=== PATIENT | female | born 1950 | race Caucasian/White ===

== ENCOUNTER 2018-01-14 09:30 | Outpatient (RCR) | payer BC, MEDICARE, SELFPAY ==
[2018-01-07 10:33] VITALS: BP 138/78; PULSE 86; RESP 16; TEMP 36.6; BMI 34.0
--- NOTE | 2018-01-07 12:05 | HP.PCM_ITS ---
(1) Decubitus ulcer of left heel, stage 3 Status: Acute Current Visit: Yes Code(s): L89.623 - Pressure ulcer of left heel, stage 3 (2) Blister of left heel with infection Status: Acute Current Visit: Yes Code(s): S90.822A - Blister (nonthermal), left foot, initial encounter; L08.9 - Local infection of the skin and subcutaneous tissue, unspecified (3) Peripheral neuropathy Status: Acute Current Visit: Yes Qualifiers: Peripheral neuropathy type: mononeuropathy, other Qualified Code(s): G58.8 - Other specified mononeuropathies Code(s): G62.9 - Polyneuropathy, unspecified (4) Edema of left lower extremity Status: Acute Current Visit: Yes Code(s): R60.0 - Localized edema History of Present Illness Date of Service: 01/07/18 Chief Complaint: Follow-up on the left heel ulcer from November 13, 2017 History of Wound: 67-year-old white female that fractured her left femur. In the hospital recovering from rods and screws and non-immobilization developed a heel blister. Patient then was sent to assisted living for rehab and was noted to have a open left heel from November 17. Patient is wearing a foot and leg brace for mobility receiving physical therapy 3 times a week and walking on the left leg. Patient has been treating the ulcer with skin repair given to her by the senior living. The ulcer is open there is undermining of a flap ulcer on the inferior side of the heel. The ulcer itself looks relatively clean the scab has been removed and was half off anyways when she arrived. Patient has neuropathy from the surgery and is hoping that the feeling will come back but has no real feeling in her lower lateral left leg and heel. There is no odor and no redness though there is some cellulitis and swelling of the dorsal left foot. Cultures debridement lab work will all be obtained today and we will start her on Promogran to promote tissue healing and promote offloading to patient. Past Medical History Past Medical History: hypertension, fractured left femur high cholesterol Allergies/Adverse Reactions: Allergies No Known Drug Allergies Allergy (Verified 01/07/18 10:13) Unknown Home Medications: Ambulatory Orders Medication Instructions Recorded Aspirin 325 mg PO BID 01/07/18 Ergocalciferol [Vitamin D] 50,000 unit PO Q7D 01/07/18 Gabapentin [Neurontin] 200 mg PO BIDCM 01/07/18 Lisinopril [Zestril] 10 mg PO DAILY 01/07/18 [place]-3 Fatty Acids/Fish Oil [Fish 1 each PO DAILY 01/07/18 Oil 1,000 mg Capsule] Pravastatin [Pravachol] 20 mg PO QHS 01/07/18 Vitamin B Complex/Folic Acid 0.4 mg PO DAILY 01/07/18 [Super B Maxi Complex Caplet] Lives: Spouse/ Significant Other Smoking Status: Never smoker Tobacco Use: Non-smoker Alcohol: None Drugs: None Review of Systems Constitutional: Denies: Chills, Fever Eyes: Denies: Blurred vision, Drainage, Pain HEENT: Denies: Difficulty Hearing, Difficulty Swallowing, Sore Throat, Visual Changes Cardiovascular: Denies: Chest Pain, Palpitations, Syncope Respiratory: Denies: Cough, Shortness of Breath Gastrointestinal: Denies: Abdominal Pain, Nausea, Vomiting Genitourinary: Denies: Dysuria, Frequency Musculoskeletal: Denies: Joint Pain, Muscle pain Skin: Reports: -. Denies: Jaundice, Rash Neurological: Denies: Balance problems, Change in Speech, Difficulty swallowing , Focal weakness Psychiatric: Denies: Anxiety, Depression Endocrine: Denies: Change in Body Habitus Hematologic/ Lymphatic: Denies: Adenopathy - Physical Exam Vital Signs Temp Pulse Resp BP 97.8 F 86 16 138/78 H 01/07/18 10:33 01/07/18 10:33 01/07/18 10:33 01/07/18 10:33 General: Oriented x3, Cooperative, Well developed HEENT: Atraumatic, PERRLA Oral: Moist Mucosa Neck: Supple, No JVD Lungs: Clear to auscultation, Normal air movement Cardiovascular: Regular rate, Regular Rhythm Abdomen: Bowel Sounds Present, Soft, Non Tender, No Hepato-splenomegaly Extremities: No clubbing, No edema, - - Heel open ulcer decubitus stage III Wound Measurements and Assessment WC - Nurse 1 - General Ulcer Measurement Start: 01/07/18 10:10 Freq: Status: Active Protocol: Activity Type Activity Date Activity User E-Sign Co-Sign Detail Recorded Client Recorded Date Recorded By Document 01/07/18 10:33 [facility] [id number] 01/07/18 11:00 BMF 01/07/18 10:33 Wound Center Nurse 1 [Ulcer Assessment] #1- LT HEEL -Combined with other wound No -Current Size (cm) - Length 3.2 -Current Size (cm) - Width 3.4 -Current Size (cm) - Depth 0.1 -Total Square Cm 10.88 -Date of Last Picture (Recall this 01/07/18 field) -Photo Taken Yes -Epithelialization None Present -Tunneling No -Undermining/Tunneling No -Circular Undermining No -Exudate Amt Small (1-33%) -Exudate Type Sanguineous -Wound Margin Distinct, Outline Attached -Granulation Amt Large (67-100%) -Granulation Quality [place] -Slough/Fibrin Yes -Necrosis Amt Small (1-33%) -Necrotic Tissue Type Eschar -Structure Exposed N/A -Texture (Joycelyn-wound Skin Appearance) Scarring -Moisture (Joycelyn-wound Skin Appearance Maceration ) -Color (Joycelyn-wound Skin Appearance) Ecchymosis -Temperature (Joycelyn-wound Skin No Abnormality Appearance) (Pt Warm) -Tenderness on Palpation (Joycelyn-wound No Skin Appearance) -Ulcer Cleansing Rinsed/ Irrigated with Saline -Foul Odor after Cleansing No -Anesthetic Used 4% Lidocaine Solution 5% Lidocaine Gel [Edema Assessment] -Lower Limb Edema Present Yes -Right Calf (cm) 43 -Right Ankle (cm) 21 -Left Calf (cm) 45.1 -Left Ankle (cm) 23.5 WC - Nurse 2 - General Ulcer CM Notes Start: 01/07/18 10:10 Freq: Status: Active Protocol: Activity Type Activity Date Activity User E-Sign Co-Sign Detail Recorded Client Recorded Date Recorded By Document 01/07/18 11:16 MW [id number] 01/07/18 11:28 MW 01/07/18 11:16 Wound Center Nurse 2 [Procedure/Treatment] #1- LT HEEL -Time 11:16 -Correct Patient Yes -Correct Side, Site, Position Yes -Correct Procedure Yes -Procedure Performed Yes -Type of Procedure Debridement -Clinical Debridement Subcutaneous -Post Debridement Size (cm) - Length 3.0 -Post Debridement Size (cm) - Width 4.0 -Post Debridement Size (cm) - Depth 0.1 -Total Square Cm 12.00 -Wound/Ulcer Outcome Not Healed -Ulcer Cleansing Rinsed/ Irrigated with Saline -Foul Odor after Cleansing No -Bioengineered Tissue No -Bleeding Controlled with Pressure -Other undermining 3 to 6, 1.0 cm -Treatment Response Procedure Tolerated Well [See Physician Procedure note for Specifics] Pain Scale: 0-10 Numeric [Pain] -Is Patient Pain Free? Yes Musculoskeletal: No Tenderness to Palpation of Joints or Extremities Lymphatic: No Cervical, Supraclavicular, or Inguinal Adenopathy Neurological: Cranial nerves II-XII grossly intact, Neuro grossly intact Psych/Mental Status: Normal Affect, Appropriate Debridement Note Post-Debridement Measurements/Treatment WC - Nurse 2 - General Ulcer CM Notes Start: 01/07/18 10:10 Freq: Status: Active Protocol: Activity Type Activity Date Activity User E-Sign Co-Sign Detail Recorded Client Recorded Date Recorded By Document 01/07/18 11:16 MW [id number] 01/07/18 11:28 MW 01/07/18 11:16 Wound Center Nurse 2 #1- LT HEEL -Time 11:16 -Correct Patient Yes -Correct Side, Site, Position Yes -Correct Procedure Yes -Procedure Performed Yes -Type of Procedure Debridement -Clinical Debridement Subcutaneous -Post Debridement Size (cm) - Length 3.0 -Post Debridement Size (cm) - Width 4.0 -Post Debridement Size (cm) - Depth 0.1 -Total Square Cm 12.00 -Wound/Ulcer Outcome Not Healed -Ulcer Cleansing Rinsed/ Irrigated with Saline -Foul Odor after Cleansing No -Bioengineered Tissue No -Bleeding Controlled with Pressure -Other undermining 3 to 6, 1.0 cm -Treatment Response Procedure Tolerated Well Pain Scale: 0-10 Numeric Is Patient Pain Free? Yes Wound debrided: Decubitus ulcer left heel Laterality: Left Type of Debridement: Excisional debridement Anesthesia Used: 5% Lidocaine Gel Depth: Down to and including healthy tissue, in the subcutaneous layer, to muscle Percentage of wound debrided: 100 Instrument Used: 7mm curette Tissue Removed: Fibrin and devitalized tissue Severity: Fat Layer Exposed Amount of bleeding with debridement: Moderate Bleeding Controlled with: Compression and gauze Patient tolerated procedure well Assessment/Plan Work prealbumin CBC with differential wound cultures aerobic and anaerobic Active Problems Decubitus ulcer of left heel, stage 3 (Acute) Blister of left heel with infection (Acute) Peripheral neuropathy (Acute) Edema of left lower extremity (Acute) Assessment: Decubitus ulcer left heel stage III. Hypertension. Infected ulcer. Edema left lower leg Plan: Left leg with Hibiclens. Promogran to open ulcer and packed underneath undermining cover with gauze tape ABD. Double layer Tubigrip. Follow-up one week
[2018-01-07 13:56] LABS: Absolute Lymphocyte Count 1.78 X10^3/ul (0.83-4.51); Absolute Neutrophil Count 6.4 X10^3/uL (2.0-7.7); Basophil# 0.03 X10^3/uL; Basophil% 0.3 % (0-1); Eosinophil# 0.37 X10^3/uL; Eosinophils% 4.1 % (0-5); Hematocrit 40.5 % (37-47); Hemoglobin 12.5 g/dl (12.0-15.0); Lymphocyte # 1.78 X10^3/ul (4.0); Lymphocyte % 19.7 % (19-41); Mean Corp Hgb Conc 30.9 g/gl (32-36); Mean Corpuscular Hgb 28.9 pg (27.0-32.0); Mean Corpuscular Volume 93.8 fL (81-99); Mean Platelet Vol. 9.5 fl (6.2-12.0); Monocyte# 0.44 X10^3/uL; Monocyte% 4.9 % (0-10); Neutrophil # 6.39 X10^3/uL (2.7-7.7); Neutrophil % 70.8 % (47-70); Platelet Count 330 K/mm3 (150-450); RBC Distribution Width SD 47.9 fl (35.1-43.9); Red Blood Count 4.32 M/mm3 (4.2-5.4)
[2018-01-07 13:57] LABS: POSITIVE COUNT NO; POSITIVE DIFFERENTIAL NO; POSITIVE MORPHOLOGY NO
[2018-01-07 14:01] LABS: Erythrocyte Sedimentation Rate 25 mm/hr (0-30)
[2018-01-07 14:10] LABS: Prealbumin 30.2 mg/dL (20.0-40.0)
[2018-01-14 09:41] VITALS: BP 136/75; PULSE 90; RESP 16; TEMP 36.6; BMI 34.0
--- NOTE | 2018-01-14 11:15 | PCM.WC.PN ---
(1) Decubitus ulcer of left heel, stage 3 Status: Acute Current Visit: Yes Code(s): L89.623 - Pressure ulcer of left heel, stage 3 (2) Blister of left heel with infection Status: Acute Current Visit: Yes Code(s): S90.822A - Blister (nonthermal), left foot, initial encounter; L08.9 - Local infection of the skin and subcutaneous tissue, unspecified (3) Peripheral neuropathy Status: Acute Current Visit: Yes Qualifiers: Peripheral neuropathy type: mononeuropathy, other Qualified Code(s): G58.8 - Other specified mononeuropathies Code(s): G62.9 - Polyneuropathy, unspecified (4) Edema of left lower extremity Status: Acute Current Visit: Yes Code(s): R60.0 - Localized edema Type of Wound Date of Service: 01/14/18 Chief Complaint: Follow-up on the left heel ulcer from November 13, 2017 History of Wound: 67-year-old white female that fractured her left femur. In the hospital recovering from rods and screws and non-immobilization developed a heel blister. Patient then was sent to assisted living for rehab and was noted to have a open left heel from November 17. Patient is wearing a foot and leg brace for mobility receiving physical therapy 3 times a week and walking on the left leg. Patient has been treating the ulcer with skin repair given to her by the long term. The ulcer is open there is undermining of a flap ulcer on the inferior side of the heel. The ulcer itself looks relatively clean the scab has been removed and was half off anyways when she arrived. Patient has neuropathy from the surgery and is hoping that the feeling will come back but has no real feeling in her lower lateral left leg and heel. There is no odor and no redness though there is some cellulitis and swelling of the dorsal left foot. Cultures debridement lab work will all be obtained today and we will start her on Promogran to promote tissue healing and promote offloading to patient. Progress of Wound: Today the wound is smaller and is adhering to the heel now there is no undermining. Cultures were positive patient has been taking medication for her staph infection. Report came back negative for anemia negative for malnutrition. We will apply for epi fix to finish off the wound. States she has cut back on therapy to 2 times a week so she can offload better - Physical Exam Vital Signs Temp Pulse Resp BP 97.8 F 90 16 136/75 H 01/14/18 09:41 01/14/18 09:41 01/14/18 09:41 01/14/18 09:41 General: Oriented x3, Cooperative, Well developed HEENT: Atraumatic, PERRLA Oral: Moist Mucosa Neck: Supple, No JVD Lungs: Clear to auscultation, Normal air movement Cardiovascular: Regular rate, Regular Rhythm Abdomen: Bowel Sounds Present, Soft, Non Tender, No Hepato-splenomegaly Extremities: No clubbing, No edema Skin: Ulcer/ Wound - Heel ulcer Wound Measurements and Assessment WC - Nurse 1 - General Ulcer Measurement Start: 01/07/18 10:10 Freq: Status: Active Protocol: Activity Type Activity Date Activity User E-Sign Co-Sign Detail Recorded Client Recorded Date Recorded By Document 01/14/18 09:41 [facility] [id number] 01/14/18 09:55 [facility] 01/14/18 09:41 Wound Center Nurse 1 [Ulcer Assessment] #1- LT HEEL -Combined with other wound No -Current Size (cm) - Length 3.1 -Current Size (cm) - Width 2.8 -Current Size (cm) - Depth 0.1 -Total Square Cm 8.68 -Photo Taken No -Epithelialization None Present -Tunneling No -Undermining/Tunneling No -Circular Undermining No -Exudate Amt Medium (34-66%) -Exudate Type Sanguineous -Wound Margin Distinct, Outline Attached -Granulation Amt Large (67-100%) -Granulation Quality [place] -Slough/Fibrin Yes -Necrosis Amt Small (1-33%) -Necrotic Tissue Type Adherent Slough -Texture (Joycelyn-wound Skin Appearance) Callus Scarring -Moisture (Joycelyn-wound Skin Appearance Dry/Scaly ) -Color (Joycelyn-wound Skin Appearance) Erythema -Temperature (Joycelyn-wound Skin No Abnormality Appearance) (Pt Warm) -Tenderness on Palpation (Joycelyn-wound Yes Skin Appearance) -Ulcer Cleansing Rinsed/ Irrigated with Saline -Foul Odor after Cleansing No -Anesthetic Used 5% Lidocaine Gel [Edema Assessment] -Lower Limb Edema Present Yes -Left Calf (cm) 40.7 -Left Ankle (cm) 22.1 WC - Nurse 2 - General Ulcer CM Notes Start: 01/07/18 10:10 Freq: Status: Active Protocol: Activity Type Activity Date Activity User E-Sign Co-Sign Detail Recorded Client Recorded Date Recorded By Document 01/14/18 10:27 MW [id number] 01/14/18 10:29 MW 01/14/18 10:27 Wound Center Nurse 2 [Procedure/Treatment] #1- LT HEEL -Time 10:28 -Correct Patient Yes -Correct Side, Site, Position Yes -Correct Procedure Yes -Procedure Performed Yes -Type of Procedure Debridement -Clinical Debridement Subcutaneous -Post Debridement Size (cm) - Length 2.5 -Post Debridement Size (cm) - Width 3.0 -Post Debridement Size (cm) - Depth 0.1 -Total Square Cm 7.50 -Wound/Ulcer Outcome Not Healed -Ulcer Cleansing Rinsed/ Irrigated with Saline -Foul Odor after Cleansing No -Bioengineered Tissue No -Bleeding Controlled with Pressure -Treatment Response Procedure Tolerated Well [See Physician Procedure note for Specifics] Pain Scale: 0-10 Numeric [Pain] -Is Patient Pain Free? Yes Musculoskeletal: No Tenderness to Palpation of Joints or Extremities Lymphatic: No Cervical, Supraclavicular, or Inguinal Adenopathy Neurological: Cranial nerves II-XII grossly intact, Neuro grossly intact Psych/Mental Status: Normal Affect, Appropriate Debridement Note Post-Debridement Measurements/Treatment WC - Nurse 2 - General Ulcer CM Notes Start: 01/07/18 10:10 Freq: Status: Active Protocol: Activity Type Activity Date Activity User E-Sign Co-Sign Detail Recorded Client Recorded Date Recorded By Document 01/07/18 11:16 MW [id number] 01/07/18 11:28 MW Document 01/14/18 10:27 MW [id number] 01/14/18 10:29 MW 01/07/18 01/14/18 11:16 10:27 Wound Center Nurse 2 #1- LT HEEL -Time 11:16 10:28 -Correct Patient Yes Yes -Correct Side, Site, Position Yes Yes -Correct Procedure Yes Yes -Procedure Performed Yes Yes -Type of Procedure Debridement Debridement -Clinical Debridement Subcutaneous Subcutaneous -Post Debridement Size (cm) - Length 3.0 2.5 -Post Debridement Size (cm) - Width 4.0 3.0 -Post Debridement Size (cm) - Depth 0.1 0.1 -Total Square Cm 12.00 7.50 -Wound/Ulcer Outcome Not Healed Not Healed -Ulcer Cleansing Rinsed/ Rinsed/ Irrigated with Irrigated with Saline Saline -Foul Odor after Cleansing No No -Bioengineered Tissue No No -Bleeding Controlled with Pressure Pressure -Other undermining 3 to 6, 1.0 cm -Treatment Response Procedure Procedure Tolerated Well Tolerated Well Pain Scale: 0-10 Numeric Is Patient Pain Free? Yes Yes Wound debrided: Lheal Type of Debridement: Excisional debridement Anesthesia Used: 5% Lidocaine Gel Depth: Down to and including healthy tissue, in the subcutaneous layer Instrument Used: 5mm curette Tissue Removed: Fibrin Severity: Limited To Skin Breakdown Amount of bleeding with debridement: Mild Bleeding Controlled with: Compression and gauze Patient tolerated procedure well Assessment/Plan Active Problems Decubitus ulcer of left heel, stage 3 (Acute) Blister of left heel with infection (Acute) Peripheral neuropathy (Acute) Edema of left lower extremity (Acute) Assessment: Decubitus ulcer left heel stage III. Hypertension. Infected ulcer. Edema left lower leg Plan: Left leg with Hibiclens. Promogran to open ulcer adaptic guaze tape ABD. Double layer Tubigrip. offload as much as possible. Follow-up 2 week
--- NOTE | 2018-01-14 11:20 | PN.PCM_ITS ---
(1) Decubitus ulcer of left heel, stage 3 Status: Acute Current Visit: Yes Code(s): L89.623 - Pressure ulcer of left heel, stage 3 (2) Blister of left heel with infection Status: Acute Current Visit: Yes Code(s): S90.822A - Blister (nonthermal), left foot, initial encounter; L08.9 - Local infection of the skin and subcutaneous tissue, unspecified (3) Peripheral neuropathy Status: Acute Current Visit: Yes Qualifiers: Peripheral neuropathy type: mononeuropathy, other Qualified Code(s): G58.8 - Other specified mononeuropathies Code(s): G62.9 - Polyneuropathy, unspecified (4) Edema of left lower extremity Status: Acute Current Visit: Yes Code(s): R60.0 - Localized edema Type of Wound Date of Service: 01/14/18 Chief Complaint: Follow-up on the left heel ulcer from November 13, 2017 History of Wound: 67-year-old white female that fractured her left femur. In the hospital recovering from rods and screws and non-immobilization developed a heel blister. Patient then was sent to assisted living for rehab and was noted to have a open left heel from November 17. Patient is wearing a foot and leg brace for mobility receiving physical therapy 3 times a week and walking on the left leg. Patient has been treating the ulcer with skin repair given to her by the assisted. The ulcer is open there is undermining of a flap ulcer on the inferior side of the heel. The ulcer itself looks relatively clean the scab has been removed and was half off anyways when she arrived. Patient has neuropathy from the surgery and is hoping that the feeling will come back but has no real feeling in her lower lateral left leg and heel. There is no odor and no redness though there is some cellulitis and swelling of the dorsal left foot. Cultures debridement lab work will all be obtained today and we will start her on Promogran to promote tissue healing and promote offloading to patient. Progress of Wound: Today the wound is smaller and is adhering to the heel now there is no undermining. Cultures were positive patient has been taking medication for her staph infection. Report came back negative for anemia negative for malnutrition. We will apply for epi fix to finish off the wound. States she has cut back on therapy to 2 times a week so she can offload better - Physical Exam Vital Signs Temp Pulse Resp BP 97.8 F 90 16 136/75 H 01/14/18 09:41 01/14/18 09:41 01/14/18 09:41 01/14/18 09:41 General: Oriented x3, Cooperative, Well developed HEENT: Atraumatic, PERRLA Oral: Moist Mucosa Neck: Supple, No JVD Lungs: Clear to auscultation, Normal air movement Cardiovascular: Regular rate, Regular Rhythm Abdomen: Bowel Sounds Present, Soft, Non Tender, No Hepato-splenomegaly Extremities: No clubbing, No edema Skin: Ulcer/ Wound - Heel ulcer Wound Measurements and Assessment WC - Nurse 1 - General Ulcer Measurement Start: 01/07/18 10:10 Freq: Status: Active Protocol: Activity Type Activity Date Activity User E-Sign Co-Sign Detail Recorded Client Recorded Date Recorded By Document 01/14/18 09:41 [facility] [id number] 01/14/18 09:55 [facility] 01/14/18 09:41 Wound Center Nurse 1 [Ulcer Assessment] #1- LT HEEL -Combined with other wound No -Current Size (cm) - Length 3.1 -Current Size (cm) - Width 2.8 -Current Size (cm) - Depth 0.1 -Total Square Cm 8.68 -Photo Taken No -Epithelialization None Present -Tunneling No -Undermining/Tunneling No -Circular Undermining No -Exudate Amt Medium (34-66%) -Exudate Type Sanguineous -Wound Margin Distinct, Outline Attached -Granulation Amt Large (67-100%) -Granulation Quality [place] -Slough/Fibrin Yes -Necrosis Amt Small (1-33%) -Necrotic Tissue Type Adherent Slough -Texture (Joycelyn-wound Skin Appearance) Callus Scarring -Moisture (Joycelyn-wound Skin Appearance Dry/Scaly ) -Color (Joycelyn-wound Skin Appearance) Erythema -Temperature (Joycelyn-wound Skin No Abnormality Appearance) (Pt Warm) -Tenderness on Palpation (Joycelyn-wound Yes Skin Appearance) -Ulcer Cleansing Rinsed/ Irrigated with Saline -Foul Odor after Cleansing No -Anesthetic Used 5% Lidocaine Gel [Edema Assessment] -Lower Limb Edema Present Yes -Left Calf (cm) 40.7 -Left Ankle (cm) 22.1 WC - Nurse 2 - General Ulcer CM Notes Start: 01/07/18 10:10 Freq: Status: Active Protocol: Activity Type Activity Date Activity User E-Sign Co-Sign Detail Recorded Client Recorded Date Recorded By Document 01/14/18 10:27 MW [id number] 01/14/18 10:29 MW 01/14/18 10:27 Wound Center Nurse 2 [Procedure/Treatment] #1- LT HEEL -Time 10:28 -Correct Patient Yes -Correct Side, Site, Position Yes -Correct Procedure Yes -Procedure Performed Yes -Type of Procedure Debridement -Clinical Debridement Subcutaneous -Post Debridement Size (cm) - Length 2.5 -Post Debridement Size (cm) - Width 3.0 -Post Debridement Size (cm) - Depth 0.1 -Total Square Cm 7.50 -Wound/Ulcer Outcome Not Healed -Ulcer Cleansing Rinsed/ Irrigated with Saline -Foul Odor after Cleansing No -Bioengineered Tissue No -Bleeding Controlled with Pressure -Treatment Response Procedure Tolerated Well [See Physician Procedure note for Specifics] Pain Scale: 0-10 Numeric [Pain] -Is Patient Pain Free? Yes Musculoskeletal: No Tenderness to Palpation of Joints or Extremities Lymphatic: No Cervical, Supraclavicular, or Inguinal Adenopathy Neurological: Cranial nerves II-XII grossly intact, Neuro grossly intact Psych/Mental Status: Normal Affect, Appropriate Debridement Note Post-Debridement Measurements/Treatment WC - Nurse 2 - General Ulcer CM Notes Start: 01/07/18 10:10 Freq: Status: Active Protocol: Activity Type Activity Date Activity User E-Sign Co-Sign Detail Recorded Client Recorded Date Recorded By Document 01/07/18 11:16 MW [id number] 01/07/18 11:28 MW Document 01/14/18 10:27 MW [id number] 01/14/18 10:29 MW 01/07/18 01/14/18 11:16 10:27 Wound Center Nurse 2 #1- LT HEEL -Time 11:16 10:28 -Correct Patient Yes Yes -Correct Side, Site, Position Yes Yes -Correct Procedure Yes Yes -Procedure Performed Yes Yes -Type of Procedure Debridement Debridement -Clinical Debridement Subcutaneous Subcutaneous -Post Debridement Size (cm) - Length 3.0 2.5 -Post Debridement Size (cm) - Width 4.0 3.0 -Post Debridement Size (cm) - Depth 0.1 0.1 -Total Square Cm 12.00 7.50 -Wound/Ulcer Outcome Not Healed Not Healed -Ulcer Cleansing Rinsed/ Rinsed/ Irrigated with Irrigated with Saline Saline -Foul Odor after Cleansing No No -Bioengineered Tissue No No -Bleeding Controlled with Pressure Pressure -Other undermining 3 to 6, 1.0 cm -Treatment Response Procedure Procedure Tolerated Well Tolerated Well Pain Scale: 0-10 Numeric Is Patient Pain Free? Yes Yes Wound debrided: Lheal Type of Debridement: Excisional debridement Anesthesia Used: 5% Lidocaine Gel Depth: Down to and including healthy tissue, in the subcutaneous layer Instrument Used: 5mm curette Tissue Removed: Fibrin Severity: Limited To Skin Breakdown Amount of bleeding with debridement: Mild Bleeding Controlled with: Compression and gauze Patient tolerated procedure well Assessment/Plan Active Problems Decubitus ulcer of left heel, stage 3 (Acute) Blister of left heel with infection (Acute) Peripheral neuropathy (Acute) Edema of left lower extremity (Acute) Assessment: Decubitus ulcer left heel stage III. Hypertension. Infected ulcer. Edema left lower leg Plan: Left leg with Hibiclens. Promogran to open ulcer adaptic guaze tape ABD. Double layer Tubigrip. offload as much as possible. Follow-up 2 week
== END 2018-01-24 23:59 ==
LOC: WC 09:30
PROVIDERS: Family Provider Nurse Practitioner Family; PCP Nurse Practitioner Family; Visit Provider Nurse Practitioner
DX: L89.623 Pressure ulcer of left heel, stage 3 (principal); G58.8 Other specified mononeuropathies; R60.0 Localized edema; L03.116 Cellulitis of left lower limb; I10 Essential (primary) hypertension; E78.00 Pure hypercholesterolemia, unspecified
CPT/HCPCS: 11042; 84134; 85025; 85652; 87070; 87075; 87077; 87186; 87205; 99203; G0463

== ENCOUNTER 2018-02-18 09:30 | Outpatient (RCR) | payer BC, MEDICARE, SELFPAY ==
[2018-01-25 01:11] VITALS: PULSE 90; RESP 16; TEMP 36.6
--- NOTE | 2018-01-31 14:05 | PN.PCM_ITS ---
(1) Blister of left heel with infection Status: Acute Current Visit: No Code(s): S90.822A - Blister (nonthermal), left foot, initial encounter; L08.9 - Local infection of the skin and subcutaneous tissue, unspecified (2) Decubitus ulcer of left heel, stage 3 Status: Acute Current Visit: Yes Code(s): L89.623 - Pressure ulcer of left heel, stage 3 (3) Edema of left lower extremity Status: Acute Current Visit: Yes Code(s): R60.0 - Localized edema (4) Peripheral neuropathy Status: Chronic Current Visit: Yes Qualifiers: Code(s): G62.9 - Polyneuropathy, unspecified Type of Wound Date of Service: 02/11/18 Chief Complaint: Follow-up on the left heel ulcer from November 13, 2017 History of Wound: 67-year-old white female that fractured her left femur. In the hospital recovering from rods and screws and non-immobilization developed a heel blister. Patient then was sent to assisted living for rehab and was noted to have a open left heel from November 17. Patient is wearing a foot and leg brace for mobility receiving physical therapy 3 times a week and walking on the left leg. Patient has been treating the ulcer with skin repair given to her by the senior care. The ulcer is open there is undermining of a flap ulcer on the inferior side of the heel. The ulcer itself looks relatively clean the scab has been removed and was half off anyways when she arrived. Patient has neuropathy from the surgery and is hoping that the feeling will come back but has no real feeling in her lower lateral left leg and heel. There is no odor and no redness though there is some cellulitis and swelling of the dorsal left foot. Cultures debridement lab work will all be obtained today and we will start her on Promogran to promote tissue healing and promote offloading to patient. Progress of Wound: Today the wound isalmost closed the skin is adhered and just the very posterior ekgeof the ulcer is open .There is no undermining. Cultures were positive patient has finished her medication for her staph infection. Report came back negative for anemia negative for malnutrition. States she has cut back on therapy to 2 times a week so she can offload better. But has developed a blood clot now in the L leg and is on blood thinners. bleeding was profuse and neede to use gel foam to stop. Patient is currently using promogran an d will finish off the ulce with this. - Physical Exam Vital Signs Temp Pulse Resp 97.8 F 90 16 01/25/18 01:11 01/25/18 01:11 01/25/18 01:11 General: Oriented x3, Cooperative, Well developed HEENT: Atraumatic, PERRLA Oral: Moist Mucosa Neck: Supple, No JVD Lungs: Clear to auscultation, Normal air movement Cardiovascular: Regular rate, Regular Rhythm Abdomen: Bowel Sounds Present, Soft, Non Tender, No Hepato-splenomegaly Extremities: No clubbing, Edema Skin: Ulcer/ Wound - heel ulcer Musculoskeletal: No Tenderness to Palpation of Joints or Extremities Lymphatic: No Cervical, Supraclavicular, or Inguinal Adenopathy Neurological: Cranial nerves II-XII grossly intact, Neuro grossly intact Psych/Mental Status: Normal Affect, Appropriate Debridement Note Post-Debridement Measurements/Treatment WC - Nurse 2 - General Ulcer CM Notes Start: 01/28/18 09:35 Freq: Status: Active Protocol: Activity Type Activity Date Activity User E-Sign Co-Sign Detail Recorded Client Recorded Date Recorded By Document 01/28/18 10:01 [email or web address] [id number] 01/28/18 10:02 [email or web address] 01/28/18 10:01 Wound Center Nurse 2 #1- LT HEEL -Time 10:02 -Correct Patient Yes -Correct Side, Site, Position Yes -Correct Procedure Yes -Procedure Performed Yes -Type of Procedure Debridement -Clinical Debridement Subcutaneous -Post Debridement Size (cm) - Length 0.2 -Post Debridement Size (cm) - Width 2.5 -Post Debridement Size (cm) - Depth 0.1 -Total Square Cm 0.50 -Wound/Ulcer Outcome Not Healed -Ulcer Cleansing Rinsed/ Irrigated with Saline -Foul Odor after Cleansing No -Bioengineered Tissue No -Bleeding Controlled with Pressure -Treatment Response Procedure Tolerated Well Wound debrided: L heel ulcer Type of Debridement: Excisional debridement Anesthesia Used: 5% Lidocaine Gel Depth: Down to and including healthy tissue, in the subcutaneous layer Percentage of wound debrided: 100 Instrument Used: 5mm curette Tissue Removed: fibrin Severity: Limited To Skin Breakdown Amount of bleeding with debridement: Moderate Bleeding Controlled with: Compression and gauze, Gel Foam Patient tolerated procedure well Assessment/Plan Active Problems Decubitus ulcer of left heel, stage 3 (Acute) Peripheral neuropathy (Chronic) Edema of left lower extremity (Acute) Deep vein thrombosis (DVT) of left lower extremity (Acute) Nonhealing ulcer of heel (Acute) Assessment: Decubitus ulcer left heel stage III. Hypertension. Infected ulcer. Edema left lower leg Plan: Left leg with Hibiclens. Promogran to open ulcer adaptic guaze tape ABD. single layer Tubigrip. offload as much as possible. Follow-up 1 week
[2018-02-11 09:42] VITALS: BP 130/72; PULSE 90; RESP 20; TEMP 36.3
--- NOTE | 2018-02-11 11:15 | PCM.WC.PN ---
(1) Blister of left heel with infection Status: Acute Current Visit: No Code(s): S90.822A - Blister (nonthermal), left foot, initial encounter; L08.9 - Local infection of the skin and subcutaneous tissue, unspecified (2) Decubitus ulcer of left heel, stage 3 Status: Acute Current Visit: Yes Code(s): L89.623 - Pressure ulcer of left heel, stage 3 (3) Edema of left lower extremity Status: Acute Current Visit: Yes Code(s): R60.0 - Localized edema (4) Peripheral neuropathy Status: Chronic Current Visit: Yes Qualifiers: Code(s): G62.9 - Polyneuropathy, unspecified (5) Deep vein thrombosis (DVT) of left lower extremity Status: Acute Current Visit: Yes Qualifiers: Affected thrombotic vein of extremity: popliteal Code(s): I82.402 - Acute embolism and thrombosis of unspecified deep veins of left lower extremity (6) Nonhealing ulcer of heel Status: Acute Current Visit: Yes Code(s): L97.409 - Non-pressure chronic ulcer of unspecified heel and midfoot with unspecified severity Type of Wound Date of Service: 02/11/18 Chief Complaint: Follow-up on the left heel ulcer from November 13, 2017 History of Wound: 67-year-old white female that fractured her left femur. In the hospital recovering from rods and screws and non-immobilization developed a heel blister. Patient then was sent to assisted living for rehab and was noted to have a open left heel from November 17. Patient is wearing a foot and leg brace for mobility receiving physical therapy 3 times a week and walking on the left leg. Patient has been treating the ulcer with skin repair given to her by the longterm. The ulcer is open there is undermining of a flap ulcer on the inferior side of the heel. The ulcer itself looks relatively clean the scab has been removed and was half off anyways when she arrived. Patient has neuropathy from the surgery and is hoping that the feeling will come back but has no real feeling in her lower lateral left leg and heel. There is no odor and no redness though there is some cellulitis and swelling of the dorsal left foot. Cultures debridement lab work will all be obtained today and we will start her on Promogran to promote tissue healing and promote offloading to patient. Progress of Wound: Today the wound isalmost closed the skin is adhered and just the very posterior ekgeof the ulcer is open .There is no undermining. Cultures were positive patient has finished her medication for her staph infection. Report came back negative for anemia negative for malnutrition. States she has cut back on therapy to 2 times a week so she can offload better. But has developed a blood clot now in the L leg and is on blood thinners today the ulcer just needs skin cover over top we will stop Promogran and we nitro stick did today to cause a scab over top the ulcer put a dry dressing on today and then she can start using hydrogel and Adaptic to hopefully to close ulcer. - Physical Exam Vital Signs Temp Pulse Resp BP 97.3 F L 90 20 H 130/72 H 02/11/18 09:42 02/11/18 09:42 02/11/18 09:42 02/11/18 09:42 General: Oriented x3, Cooperative, Well developed HEENT: Atraumatic, PERRLA Oral: Moist Mucosa Neck: Supple, No JVD Lungs: Clear to auscultation, Normal air movement Cardiovascular: Regular rate, Regular Rhythm Abdomen: Bowel Sounds Present, Soft, Non Tender, No Hepato-splenomegaly Extremities: No clubbing, Edema Skin: - - Skin ulcer left heel Wound Measurements and Assessment WC - Nurse 1 - General Ulcer Measurement Start: 01/28/18 09:35 Freq: Status: Active Protocol: Activity Type Activity Date Activity User E-Sign Co-Sign Detail Recorded Client Recorded Date Recorded By Document 02/11/18 09:42 DL [id number] 02/11/18 09:48 DL 02/11/18 09:42 Wound Center Nurse 1 [Ulcer Assessment] #1- LT HEEL -Current Size (cm) - Length 0.8 -Current Size (cm) - Width 2 -Current Size (cm) - Depth 0.1 -Total Square Cm 1.6 -Photo Taken No -Exudate Amt Small (1-33%) -Exudate Type Sanguineous -Wound Margin Distinct, Outline Attached -Granulation Amt Large (67-100%) -Granulation Quality Red -Necrosis Amt None Present (0 %) -Structure Exposed N/A -Texture (Joycelyn-wound Skin Appearance) No Abnormality -Moisture (Joycelyn-wound Skin Appearance Dry/Scaly ) -Color (Joycelyn-wound Skin Appearance) No Abnormality -Temperature (Joycelyn-wound Skin No Abnormality Appearance) (Pt Warm) -Ulcer Cleansing Rinsed/ Irrigated with Saline -Foul Odor after Cleansing No -Anesthetic Used 4% Lidocaine Solution [Edema Assessment] -Left Calf (cm) 38.5 -Left Ankle (cm) 21.5 WC - Nurse 2 - General Ulcer CM Notes Start: 01/28/18 09:35 Freq: Status: Active Protocol: Activity Type Activity Date Activity User E-Sign Co-Sign Detail Recorded Client Recorded Date Recorded By Document 02/11/18 10:27 [id number] 02/11/18 10:32 JS 02/11/18 10:27 Wound Center Nurse 2 [Procedure/Treatment] #1- LT HEEL -Time 10:27 -Correct Patient Yes -Correct Side, Site, Position Yes -Correct Procedure Yes -Procedure Performed Yes -Type of Procedure Debridement -Clinical Debridement Subcutaneous -Post Debridement Size (cm) - Length 0.8 -Post Debridement Size (cm) - Width 2.3 -Post Debridement Size (cm) - Depth 0.1 -Total Square Cm 1.84 -Wound/Ulcer Outcome Not Healed -Ulcer Cleansing Rinsed/ Irrigated with Saline -Foul Odor after Cleansing No -Bioengineered Tissue No -Topical Lidocaine (%) 4 -Lidocaine (ml) 5 -Bleeding Controlled with NA -Treatment Response Procedure Tolerated Well [See Physician Procedure note for Specifics] Pain Scale: 0-10 Numeric [Pain] -Is Patient Pain Free? Yes Musculoskeletal: No Tenderness to Palpation of Joints or Extremities Lymphatic: No Cervical, Supraclavicular, or Inguinal Adenopathy Neurological: Cranial nerves II-XII grossly intact, Neuro grossly intact Psych/Mental Status: Normal Affect, Appropriate, Alert and oriented to time, place, person, mood and affect Debridement Note Post-Debridement Measurements/Treatment - Nurse 2 - General Ulcer CM Notes Start: 01/28/18 09:35 Freq: Status: Active Protocol: Activity Type Activity Date Activity User E-Sign Co-Sign Detail Recorded Client Recorded Date Recorded By Document 01/28/18 10: [id number] 01/28/18 10:02 JS Document 02/11/18 10:27 [id number] 02/11/18 10:32 JS 01/28/18 02/11/18 10:01 10:27 Wound Center Nurse 2 #1- LT HEEL -Time 10:02 10:27 -Correct Patient Yes Yes -Correct Side, Site, Position Yes Yes -Correct Procedure Yes Yes -Procedure Performed Yes Yes -Type of Procedure Debridement Debridement -Clinical Debridement Subcutaneous Subcutaneous -Post Debridement Size (cm) - Length 0.2 0.8 -Post Debridement Size (cm) - Width 2.5 2.3 -Post Debridement Size (cm) - Depth 0.1 0.1 -Total Square Cm 0.50 1.84 -Wound/Ulcer Outcome Not Healed Not Healed -Ulcer Cleansing Rinsed/ Rinsed/ Irrigated with Irrigated with Saline Saline -Foul Odor after Cleansing No No -Bioengineered Tissue No No -Topical Lidocaine (%) 4 -Lidocaine (ml) 5 -Bleeding Controlled with Pressure NA -Treatment Response Procedure Procedure Tolerated Well Tolerated Well Pain Scale: 0-10 Numeric Is Patient Pain Free? Yes Wound debrided: Heel ulcer Type of Debridement: Excisional debridement Anesthesia Used: 5% Lidocaine Gel Depth: Down to and including healthy tissue, in the subcutaneous layer Percentage of wound debrided: 100 Instrument Used: 5mm curette Tissue Removed: Devitalized tissue fibrin Severity: Limited To Skin Breakdown Amount of bleeding with debridement: Moderate Bleeding Controlled with: Silver Nitrate Patient tolerated procedure well Assessment/Plan Active Problems Decubitus ulcer of left heel, stage 3 (Acute) Peripheral neuropathy (Chronic) Edema of left lower extremity (Acute) Deep vein thrombosis (DVT) of left lower extremity (Acute) Nonhealing ulcer of heel (Acute) Assessment: Decubitus ulcer left heel stage III. Hypertension. Infected ulcer. Edema left lower leg Plan: Left leg with Hibiclens. Hydrogel Adaptic gauze dressing. single layer Tubigrip. offload as much as possible. Follow-up 1 week
[2018-02-18 09:40] VITALS: BP 129/72; PULSE 79; RESP 18; TEMP 36.2
--- NOTE | 2018-02-18 10:52 | PCM.WC.PN ---
(1) Blister of left heel with infection Status: Acute Current Visit: No Code(s): S90.822A - Blister (nonthermal), left foot, initial encounter; L08.9 - Local infection of the skin and subcutaneous tissue, unspecified (2) Decubitus ulcer of left heel, stage 3 Status: Acute Current Visit: Yes Code(s): L89.623 - Pressure ulcer of left heel, stage 3 (3) Edema of left lower extremity Status: Acute Current Visit: Yes Code(s): R60.0 - Localized edema (4) Peripheral neuropathy Status: Chronic Current Visit: Yes Qualifiers: Code(s): G62.9 - Polyneuropathy, unspecified Type of Wound Date of Service: 02/18/18 Chief Complaint: Follow-up on the left heel ulcer from November 13, 2017 History of Wound: 67-year-old white female that fractured her left femur. In the hospital recovering from rods and screws and non-immobilization developed a heel blister. Patient then was sent to assisted living for rehab and was noted to have a open left heel from November 17. Patient is wearing a foot and leg brace for mobility receiving physical therapy 3 times a week and walking on the left leg. Patient has been treating the ulcer with skin repair given to her by the residential. The ulcer is open there is undermining of a flap ulcer on the inferior side of the heel. The ulcer itself looks relatively clean the scab has been removed and was half off anyways when she arrived. Patient has neuropathy from the surgery and is hoping that the feeling will come back but has no real feeling in her lower lateral left leg and heel. There is no odor and no redness though there is some cellulitis and swelling of the dorsal left foot. Cultures debridement lab work will all be obtained today and we will start her on Promogran to promote tissue healing and promote offloading to patient. Progress of Wound: Today the wound isalmost closed the skin is adhered and just the very posterior ekgeof the ulcer is open .There is no undermining. Cultures were positive patient has finished her medication for her staph infection. Report came back negative for anemia negative for malnutrition. States she has cut back on therapy to 2 times a week so she can offload better. But has developed a blood clot now in the L leg and is on blood thinners. We used nitro sticks to the ulcer again this week. who does the dressing changes complaining that the dressing stuck a lot and caused it to bleed more. I suggested he moisten the dressing before removal. If the scab is still intact continue with just dry dressings if the dressing comes off and there is open wound then go back to the hydrogel and Adaptic. Continue to pad and protect. - Physical Exam Vital Signs Temp Pulse Resp BP 97.1 F L 79 18 129/72 H 02/18/18 09:40 02/18/18 09:40 02/18/18 09:40 02/18/18 09:40 General: Oriented x3, Cooperative, Well developed HEENT: Atraumatic, PERRLA Oral: Moist Mucosa Neck: Supple, No JVD Lungs: Clear to auscultation, Normal air movement Cardiovascular: Regular rate, Regular Rhythm Abdomen: Bowel Sounds Present, Soft, Non Tender, No Hepato-splenomegaly Extremities: No clubbing, No edema, - - Heel ulcer Wound Measurements and Assessment WC - Nurse 1 - General Ulcer Measurement Start: 01/28/18 09:35 Freq: Status: Active Protocol: Activity Type Activity Date Activity User E-Sign Co-Sign Detail Recorded Client Recorded Date Recorded By Document 02/18/18 09:40 [id number] 02/18/18 09:56 02/18/18 09:40 Wound Center Nurse 1 [Ulcer Assessment] #1- LT HEEL -Combined with other wound No -Current Size (cm) - Length 0.4 -Current Size (cm) - Width 0.9 -Current Size (cm) - Depth 0.1 -Total Square Cm 0.36 -Date of Last Picture (Recall this 02/18/18 field) -Photo Taken Yes -Epithelialization Medium 34-66% -Tunneling No -Undermining/Tunneling No -Circular Undermining No -Classification - Thickness Full Thickness without Exposed Support Structure -Change in Wound Grade/Stage No Query Text:If change please identify the Stage/Grade in the comment (ie. S2 G3) -Exudate Amt Small (1-33%) -Exudate Type Serosanguineous -Wound Margin Distinct, Outline Attached -Granulation Amt Medium (34-66%) -Granulation Quality Red -Slough/Fibrin Yes -Necrosis Amt None Present (0 %) -Necrotic Tissue Type Adherent Slough -Structure Exposed N/A -Texture (Joycelyn-wound Skin Appearance) No Abnormality -Moisture (Joycelyn-wound Skin Appearance No Abnormality ) -Color (Joycelyn-wound Skin Appearance) No Abnormality -Temperature (Joycelyn-wound Skin No Abnormality Appearance) (Pt Warm) -Tenderness on Palpation (Joycelyn-wound No Skin Appearance) -Ulcer Cleansing Rinsed/ Irrigated with Saline -Foul Odor after Cleansing No -Anesthetic Used 4% Lidocaine Solution [Edema Assessment] -Lower Limb Edema Present Yes -Left Calf (cm) 38.8 -Left Ankle (cm) 22.4 DARREN - Nurse 2 - General Ulcer CM Notes Start: 01/28/18 09:35 Freq: Status: Active Protocol: Activity Type Activity Date Activity User E-Sign Co-Sign Detail Recorded Client Recorded Date Recorded By Document 02/18/18 10:28 BRINA [id number] 02/18/18 10:29 DV 02/18/18 10:28 Wound Center Nurse 2 [Procedure/Treatment] #1- LT HEEL -Time 10:28 -Correct Patient Yes -Correct Side, Site, Position Yes -Correct Procedure Yes -Procedure Performed Yes -Clinical Debridement Selective -Post Debridement Size (cm) - Length 0.3 -Post Debridement Size (cm) - Width 1.7 -Post Debridement Size (cm) - Depth 0.1 -Total Square Cm 0.51 -Wound/Ulcer Outcome Not Healed -Ulcer Cleansing Rinsed/ Irrigated with Saline -Foul Odor after Cleansing No -Bioengineered Tissue No -Bleeding Controlled with Silver Nitrate [See Physician Procedure note for Specifics] Pain Scale: 0-10 Numeric [Pain] -Is Patient Pain Free? Yes Musculoskeletal: No Tenderness to Palpation of Joints or Extremities Lymphatic: No Cervical, Supraclavicular, or Inguinal Adenopathy Neurological: Cranial nerves II-XII grossly intact, Neuro grossly intact Psych/Mental Status: Normal Affect, Appropriate, Alert and oriented to time, place, person, mood and affect Debridement Note Post-Debridement Measurements/Treatment - Nurse 2 - General Ulcer CM Notes Start: 01/28/18 09:35 Freq: Status: Active Protocol: Activity Type Activity Date Activity User E-Sign Co-Sign Detail Recorded Client Recorded Date Recorded By Document 01/28/18 10:01 [email or web address] [id number] 01/28/18 10:02 JS Document 02/11/18 10:27 [email or web address] [id number] 02/11/18 10:32 JS Document 02/18/18 10:28 DV [id number] 02/18/18 10:29 DV 01/28/18 02/11/18 02/18/18 10:01 10:27 10:28 Wound Center Nurse 2 #1- LT HEEL -Time 10:02 10:27 10:28 -Correct Patient Yes Yes Yes -Correct Side, Site, Position Yes Yes Yes -Correct Procedure Yes Yes Yes -Procedure Performed Yes Yes Yes -Type of Procedure Debridement Debridement -Clinical Debridement Subcutaneous Subcutaneous Selective -Post Debridement Size (cm) - Length 0.2 0.8 0.3 -Post Debridement Size (cm) - Width 2.5 2.3 1.7 -Post Debridement Size (cm) - Depth 0.1 0.1 0.1 -Total Square Cm 0.50 1.84 0.51 -Wound/Ulcer Outcome Not Healed Not Healed Not Healed -Ulcer Cleansing Rinsed/ Rinsed/ Rinsed/ Irrigated with Irrigated with Irrigated with Saline Saline Saline -Foul Odor after Cleansing No No No -Bioengineered Tissue No No No -Topical Lidocaine (%) 4 -Lidocaine (ml) 5 -Bleeding Controlled with Pressure NA Silver Nitrate -Treatment Response Procedure Procedure Tolerated Well Tolerated Well Pain Scale: 0-10 Numeric Is Patient Pain Free? Yes Yes Wound debrided: Heel ulcer Laterality: Left Wound Grade/Stage: Resolving stage III Type of Debridement: Selective debridement Depth: Down to and including healthy tissue Percentage of wound debrided: 100 Instrument Used: 5mm curette Tissue Removed: Fibrin and devitalized tissue Amount of bleeding with debridement: None Bleeding Controlled with: Pressure Patient tolerated procedure well Assessment/Plan Active Problems Decubitus ulcer of left heel, stage 3 (Acute) Peripheral neuropathy (Chronic) Edema of left lower extremity (Acute) Deep vein thrombosis (DVT) of left lower extremity (Acute) Nonhealing ulcer of heel (Acute) Assessment: Decubitus ulcer left heel stage III. Hypertension. Infected ulcer. Edema left lower leg Plan: Wash Left leg with Hibiclens. Dry dressing unless opens then hydrogel and Adaptic daily. single layer Tubigrip. offload as much as possible. Follow-up 1 week
--- NOTE | 2018-02-18 10:57 | PN.PCM_ITS ---
(1) Blister of left heel with infection Status: Acute Current Visit: No Code(s): S90.822A - Blister (nonthermal), left foot, initial encounter; L08.9 - Local infection of the skin and subcutaneous tissue, unspecified (2) Decubitus ulcer of left heel, stage 3 Status: Acute Current Visit: Yes Code(s): L89.623 - Pressure ulcer of left heel, stage 3 (3) Edema of left lower extremity Status: Acute Current Visit: Yes Code(s): R60.0 - Localized edema (4) Peripheral neuropathy Status: Chronic Current Visit: Yes Qualifiers: Code(s): G62.9 - Polyneuropathy, unspecified Type of Wound Date of Service: 02/18/18 Chief Complaint: Follow-up on the left heel ulcer from November 13, 2017 History of Wound: 67-year-old white female that fractured her left femur. In the hospital recovering from rods and screws and non-immobilization developed a heel blister. Patient then was sent to assisted living for rehab and was noted to have a open left heel from November 17. Patient is wearing a foot and leg brace for mobility receiving physical therapy 3 times a week and walking on the left leg. Patient has been treating the ulcer with skin repair given to her by the assisted. The ulcer is open there is undermining of a flap ulcer on the inferior side of the heel. The ulcer itself looks relatively clean the scab has been removed and was half off anyways when she arrived. Patient has neuropathy from the surgery and is hoping that the feeling will come back but has no real feeling in her lower lateral left leg and heel. There is no odor and no redness though there is some cellulitis and swelling of the dorsal left foot. Cultures debridement lab work will all be obtained today and we will start her on Promogran to promote tissue healing and promote offloading to patient. Progress of Wound: Today the wound isalmost closed the skin is adhered and just the very posterior ekgeof the ulcer is open .There is no undermining. Cultures were positive patient has finished her medication for her staph infection. Report came back negative for anemia negative for malnutrition. States she has cut back on therapy to 2 times a week so she can offload better. But has developed a blood clot now in the L leg and is on blood thinners. We used nitro sticks to the ulcer again this week. who does the dressing changes complaining that the dressing stuck a lot and caused it to bleed more. I suggested he moisten the dressing before removal. If the scab is still intact continue with just dry dressings if the dressing comes off and there is open wound then go back to the hydrogel and Adaptic. Continue to pad and protect. - Physical Exam Vital Signs Temp Pulse Resp BP 97.1 F L 79 18 129/72 H 02/18/18 09:40 02/18/18 09:40 02/18/18 09:40 02/18/18 09:40 General: Oriented x3, Cooperative, Well developed HEENT: Atraumatic, PERRLA Oral: Moist Mucosa Neck: Supple, No JVD Lungs: Clear to auscultation, Normal air movement Cardiovascular: Regular rate, Regular Rhythm Abdomen: Bowel Sounds Present, Soft, Non Tender, No Hepato-splenomegaly Extremities: No clubbing, No edema, - - Heel ulcer Wound Measurements and Assessment WC - Nurse 1 - General Ulcer Measurement Start: 01/28/18 09:35 Freq: Status: Active Protocol: Activity Type Activity Date Activity User E-Sign Co-Sign Detail Recorded Client Recorded Date Recorded By Document 02/18/18 09:40 [id number] 02/18/18 09:56 02/18/18 09:40 Wound Center Nurse 1 [Ulcer Assessment] #1- LT HEEL -Combined with other wound No -Current Size (cm) - Length 0.4 -Current Size (cm) - Width 0.9 -Current Size (cm) - Depth 0.1 -Total Square Cm 0.36 -Date of Last Picture (Recall this 02/18/18 field) -Photo Taken Yes -Epithelialization Medium 34-66% -Tunneling No -Undermining/Tunneling No -Circular Undermining No -Classification - Thickness Full Thickness without Exposed Support Structure -Change in Wound Grade/Stage No Query Text:If change please identify the Stage/Grade in the comment (ie. S2 G3) -Exudate Amt Small (1-33%) -Exudate Type Serosanguineous -Wound Margin Distinct, Outline Attached -Granulation Amt Medium (34-66%) -Granulation Quality Red -Slough/Fibrin Yes -Necrosis Amt None Present (0 %) -Necrotic Tissue Type Adherent Slough -Structure Exposed N/A -Texture (Joycelyn-wound Skin Appearance) No Abnormality -Moisture (Joycelyn-wound Skin Appearance No Abnormality ) -Color (Joycelyn-wound Skin Appearance) No Abnormality -Temperature (Jyocelyn-wound Skin No Abnormality Appearance) (Pt Warm) -Tenderness on Palpation (Joycelyn-wound No Skin Appearance) -Ulcer Cleansing Rinsed/ Irrigated with Saline -Foul Odor after Cleansing No -Anesthetic Used 4% Lidocaine Solution [Edema Assessment] -Lower Limb Edema Present Yes -Left Calf (cm) 38.8 -Left Ankle (cm) 22.4 DARREN - Nurse 2 - General Ulcer CM Notes Start: 01/28/18 09:35 Freq: Status: Active Protocol: Activity Type Activity Date Activity User E-Sign Co-Sign Detail Recorded Client Recorded Date Recorded By Document 02/18/18 10:28 BRINA [id number] 02/18/18 10:29 DV 02/18/18 10:28 Wound Center Nurse 2 [Procedure/Treatment] #1- LT HEEL -Time 10:28 -Correct Patient Yes -Correct Side, Site, Position Yes -Correct Procedure Yes -Procedure Performed Yes -Clinical Debridement Selective -Post Debridement Size (cm) - Length 0.3 -Post Debridement Size (cm) - Width 1.7 -Post Debridement Size (cm) - Depth 0.1 -Total Square Cm 0.51 -Wound/Ulcer Outcome Not Healed -Ulcer Cleansing Rinsed/ Irrigated with Saline -Foul Odor after Cleansing No -Bioengineered Tissue No -Bleeding Controlled with Silver Nitrate [See Physician Procedure note for Specifics] Pain Scale: 0-10 Numeric [Pain] -Is Patient Pain Free? Yes Musculoskeletal: No Tenderness to Palpation of Joints or Extremities Lymphatic: No Cervical, Supraclavicular, or Inguinal Adenopathy Neurological: Cranial nerves II-XII grossly intact, Neuro grossly intact Psych/Mental Status: Normal Affect, Appropriate, Alert and oriented to time, place, person, mood and affect Debridement Note Post-Debridement Measurements/Treatment - Nurse 2 - General Ulcer CM Notes Start: 01/28/18 09:35 Freq: Status: Active Protocol: Activity Type Activity Date Activity User E-Sign Co-Sign Detail Recorded Client Recorded Date Recorded By Document 01/28/18 10:01 [email or web address] [id number] 01/28/18 10:02 JS Document 02/11/18 10:27 DEBBIE [id number] 02/11/18 10:32 JS Document 02/18/18 10:28 DV [id number] 02/18/18 10:29 DV 01/28/18 02/11/18 02/18/18 10:01 10:27 10:28 Wound Center Nurse 2 #1- LT HEEL -Time 10:02 10:27 10:28 -Correct Patient Yes Yes Yes -Correct Side, Site, Position Yes Yes Yes -Correct Procedure Yes Yes Yes -Procedure Performed Yes Yes Yes -Type of Procedure Debridement Debridement -Clinical Debridement Subcutaneous Subcutaneous Selective -Post Debridement Size (cm) - Length 0.2 0.8 0.3 -Post Debridement Size (cm) - Width 2.5 2.3 1.7 -Post Debridement Size (cm) - Depth 0.1 0.1 0.1 -Total Square Cm 0.50 1.84 0.51 -Wound/Ulcer Outcome Not Healed Not Healed Not Healed -Ulcer Cleansing Rinsed/ Rinsed/ Rinsed/ Irrigated with Irrigated with Irrigated with Saline Saline Saline -Foul Odor after Cleansing No No No -Bioengineered Tissue No No No -Topical Lidocaine (%) 4 -Lidocaine (ml) 5 -Bleeding Controlled with Pressure NA Silver Nitrate -Treatment Response Procedure Procedure Tolerated Well Tolerated Well Pain Scale: 0-10 Numeric Is Patient Pain Free? Yes Yes Wound debrided: Heel ulcer Laterality: Left Wound Grade/Stage: Resolving stage III Type of Debridement: Selective debridement Depth: Down to and including healthy tissue Percentage of wound debrided: 100 Instrument Used: 5mm curette Tissue Removed: Fibrin and devitalized tissue Amount of bleeding with debridement: None Bleeding Controlled with: Pressure Patient tolerated procedure well Assessment/Plan Active Problems Decubitus ulcer of left heel, stage 3 (Acute) Peripheral neuropathy (Chronic) Edema of left lower extremity (Acute) Deep vein thrombosis (DVT) of left lower extremity (Acute) Nonhealing ulcer of heel (Acute) Assessment: Decubitus ulcer left heel stage III. Hypertension. Infected ulcer. Edema left lower leg Plan: Wash Left leg with Hibiclens. Dry dressing unless opens then hydrogel and Adaptic daily. single layer Tubigrip. offload as much as possible. Follow-up 1 week
== END 2018-02-24 23:59 ==
LOC: WC 09:30
PROVIDERS: Family Provider Nurse Practitioner Family; PCP Nurse Practitioner Family; Visit Provider Nurse Practitioner
DX: L89.623 Pressure ulcer of left heel, stage 3 (principal); R60.0 Localized edema; G62.9 Polyneuropathy, unspecified; S90.822A Blister (nonthermal), left foot, initial encounter; I10 Essential (primary) hypertension; Z86.718 Personal history of other venous thrombosis and embolism
CPT/HCPCS: 11042; 17250; 97597; 99212; G0463

== ENCOUNTER 2018-02-25 09:24 | Outpatient (RCR) | payer BC, MEDICARE, SELFPAY ==
[2018-02-25 00:58] VITALS: BP 129/72; PULSE 79; RESP 18; TEMP 36.2
[2018-02-25 09:35] VITALS: BP 129/77; PULSE 83; RESP 18; TEMP 36.4
--- NOTE | 2018-02-25 11:23 | PN.PCM_ITS ---
(1) Blister of left heel with infection Status: Acute Current Visit: No Code(s): S90.822A - Blister (nonthermal), left foot, initial encounter; L08.9 - Local infection of the skin and subcutaneous tissue, unspecified (2) Decubitus ulcer of left heel, stage 3 Status: Acute Current Visit: No Code(s): L89.623 - Pressure ulcer of left heel, stage 3 (3) Deep vein thrombosis (DVT) of left lower extremity Status: Acute Current Visit: Yes Code(s): I82.402 - Acute embolism and thrombosis of unspecified deep veins of left lower extremity (4) Edema of left lower extremity Status: Acute Current Visit: Yes Code(s): R60.0 - Localized edema (5) Nonhealing ulcer of heel Status: Acute Current Visit: Yes Code(s): L97.409 - Non-pressure chronic ulcer of unspecified heel and midfoot with unspecified severity (6) Peripheral neuropathy Status: Chronic Current Visit: Yes Qualifiers: Code(s): G62.9 - Polyneuropathy, unspecified Type of Wound Date of Service: 02/25/18 Chief Complaint: Follow-up on the left heel ulcer from November 13, 2017 History of Wound: 67-year-old white female that fractured her left femur. In the hospital recovering from rods and screws and non-immobilization developed a heel blister. Patient then was sent to assisted living for rehab and was noted to have a open left heel from November 17. Patient is wearing a foot and leg brace for mobility receiving physical therapy 3 times a week and walking on the left leg. Patient has been treating the ulcer with skin repair given to her by the longterm. The ulcer is open there is undermining of a flap ulcer on the inferior side of the heel. The ulcer itself looks relatively clean the scab has been removed and was half off anyways when she arrived. Patient has neuropathy from the surgery and is hoping that the feeling will come back but has no real feeling in her lower lateral left leg and heel. There is no odor and no redness though there is some cellulitis and swelling of the dorsal left foot. Cultures debridement lab work will all be obtained today and we will start her on Promogran to promote tissue healing and promote offloading to patient. Progress of Wound: Today the ulcer on the left heel is healed. Patient will be discharged home follow-up as needed - Physical Exam Vital Signs Temp Pulse Resp BP 97.5 F L 83 18 129/77 H 02/25/18 09:35 02/25/18 09:35 02/25/18 09:35 02/25/18 09:35 General: Oriented x3, Cooperative, Well developed HEENT: Atraumatic, PERRLA Oral: Moist Mucosa Neck: Supple, No JVD Lungs: Clear to auscultation, Normal air movement Cardiovascular: Regular rate, Regular Rhythm Abdomen: Bowel Sounds Present, Soft, Non Tender, No Hepato-splenomegaly Extremities: No clubbing, No edema Skin: Ulcer/ Wound Wound Measurements and Assessment WC - Nurse 1 - General Ulcer Measurement Start: 02/25/18 09:35 Freq: Status: Active Protocol: Activity Type Activity Date Activity User E-Sign Co-Sign Detail Recorded Client Recorded Date Recorded By Document 02/25/18 09:35 DL [id number] 02/25/18 09:44 DL 02/25/18 09:35 Wound Center Nurse 1 [Ulcer Assessment] #1- LT HEEL -Current Size (cm) - Length 0.8 -Current Size (cm) - Width 1.8 -Current Size (cm) - Depth 0.1 -Total Square Cm 1.44 -Photo Taken No -Exudate Amt None Present (0 %) -Wound Margin Thickened -Granulation Amt None Present (0 %) -Necrosis Amt Small (1-33%) -Necrotic Tissue Type Adherent Slough -Structure Exposed N/A -Texture (Joycelyn-wound Skin Appearance) No Abnormality -Moisture (Joycelyn-wound Skin Appearance Dry/Scaly ) -Color (Joycelyn-wound Skin Appearance) No Abnormality -Temperature (Joycelyn-wound Skin No Abnormality Appearance) (Pt Warm) -Ulcer Cleansing Rinsed/ Irrigated with Saline -Foul Odor after Cleansing No -Anesthetic Used 4% Lidocaine Solution [Edema Assessment] -Left Calf (cm) 38.5 -Left Ankle (cm) 21.5 WC - Nurse 2 - General Ulcer CM Notes Start: 02/25/18 09:35 Freq: Status: Active Protocol: Activity Type Activity Date Activity User E-Sign Co-Sign Detail Recorded Client Recorded Date Recorded By Document 02/25/18 10:12 HILL [id number] 02/25/18 10:13 HILL 02/25/18 10:12 Wound Center Nurse 2 [Procedure/Treatment] #1- LT HEEL -Correct Patient No -Correct Side, Site, Position No -Correct Procedure No -Procedure Performed No -Post Debridement Size (cm) - Length 0 -Post Debridement Size (cm) - Width 0 -Post Debridement Size (cm) - Depth 0 -Total Square Cm 0 -Wound/Ulcer Outcome Healed- Epithelialized [See Physician Procedure note for Specifics] Pain Scale: 0-10 Numeric [Pain] -Is Patient Pain Free? Yes Musculoskeletal: No Tenderness to Palpation of Joints or Extremities Lymphatic: No Cervical, Supraclavicular, or Inguinal Adenopathy Neurological: Cranial nerves II-XII grossly intact, Neuro grossly intact Psych/Mental Status: Normal Affect, Appropriate Debridement Note Post-Debridement Measurements/Treatment WC - Nurse 2 - General Ulcer CM Notes Start: 02/25/18 09:35 Freq: Status: Active Protocol: Activity Type Activity Date Activity User E-Sign Co-Sign Detail Recorded Client Recorded Date Recorded By Document 02/25/18 10:12 HILL [id number] 02/25/18 10:13 HILL 02/25/18 10:12 Wound Center Nurse 2 #1- LT HEEL -Correct Patient No -Correct Side, Site, Position No -Correct Procedure No -Procedure Performed No -Post Debridement Size (cm) - Length 0 -Post Debridement Size (cm) - Width 0 -Post Debridement Size (cm) - Depth 0 -Total Square Cm 0 -Wound/Ulcer Outcome Healed- Epithelialized Pain Scale: 0-10 Numeric Is Patient Pain Free? Yes No debridement was completed today Assessment/Plan Active Problems Peripheral neuropathy (Chronic) Edema of left lower extremity (Acute) Deep vein thrombosis (DVT) of left lower extremity (Acute) Nonhealing ulcer of heel (Acute) Assessment: Decubitus ulcer left heel stage III resolved. Hypertension. Infected ulcer resolved. Edema left lower leg Plan: Charge from the wound center follow-up as needed
== END 2018-03-26 23:59 ==
LOC: WC 09:24
PROVIDERS: Family Provider Nurse Practitioner Family; PCP Nurse Practitioner Family; Visit Provider Nurse Practitioner
DX: Z09 Encounter for follow-up examination after completed treatment for conditions other than malignant neoplasm (principal); R60.0 Localized edema; G62.9 Polyneuropathy, unspecified; Z86.718 Personal history of other venous thrombosis and embolism
CPT/HCPCS: 99213; G0463

== ENCOUNTER 2019-05-26 09:30 | Outpatient (RCR) | payer BC, MEDICARE, SELFPAY ==
[2019-05-05 10:06] VITALS: BP 150/76; PULSE 72; RESP 18; TEMP 35.7; BMI 33.2
--- NOTE | 2019-05-05 11:26 | RAD_ITS ---
STUDY: X-RAY - RIGHT TIBIA AND FIBULA REASON FOR EXAM: Female, 68 years old. Infected distal lateral right TECHNIQUE: 2 view(s) of the tibia and fibula were obtained. COMPARISON: None. FINDINGS: Normal visualized tibia. Normal visualized fibula. The soft tissue structures are unremarkable. RAD/Tibia & Fibula 2 Views IMPRESSION: Normal x-ray examination of the tibia and fibula. Electronically Signed: Camilo zOuna MD at 18:14 EDT , Service support ,
--- NOTE | 2019-05-05 11:41 | PN.PCM_ITS ---
(1) Nonhealing nonsurgical wound with fat layer exposed Status: Acute Current Visit: Yes Code(s): T14.8XXA - Other injury of unspecified body region, initial encounter (2) Edema of lower extremity Status: Acute Current Visit: Yes Code(s): R60.0 - Localized edema (3) Deep vein thrombosis (DVT) of left lower extremity Status: Chronic Current Visit: Yes Code(s): I82.402 - Acute embolism and thrombosis of unspecified deep veins of left lower extremity (4) Peripheral neuropathy Status: Chronic Current Visit: Yes Qualifiers: Peripheral neuropathy type: polyneuropathy associated with underlying disease Qualified Code(s): G63 - Polyneuropathy in diseases classified elsewhere Code(s): G62.9 - Polyneuropathy, unspecified Type of Wound Date of Service: 05/05/19 Chief Complaint: Follow-up of her right lower drummond wound History of Wound: 68-year-old white female that was seen by her mental health specialist for a left great toe wound decided she had an abscess on her right lower drummond area. He I&D the area and February.But there was improper follow-up probably from patient. Patient went back to her family doctor put on antibiotics it did not help. There was some concern about it so the doctor sent her here Progress of Wound: The area looks like a puncture wound probably from the I&D erythematous base with serous drainage. - Physical Exam Vital Signs Temp Pulse Resp BP 96.2 F L 72 18 150/76 H 05/05/19 10:06 05/05/19 10:06 05/05/19 10:06 05/05/19 10:06 General: Oriented x3, Cooperative, Well developed HEENT: Atraumatic, PERRLA Oral: Moist Mucosa Neck: Supple, No JVD Lungs: Clear to auscultation, Normal air movement Cardiovascular: Regular rate, Regular Rhythm Abdomen: Bowel Sounds Present, Soft, Non Tender, No Hepato-splenomegaly Extremities: No clubbing, No edema, - - Open wound right drummond with erythematous base Skin: Rash Present Wound Measurements and Assessment WC - Nurse 1 - General Ulcer Measurement Start: 05/05/19 10:06 Freq: Status: Active Protocol: Activity Type Activity Date Activity User E-Sign Co-Sign Detail Recorded Client Recorded Date Recorded By Document 05/05/19 10:06 ANGELICA [id number] 05/05/19 10:22 DL 05/05/19 10:06 Wound Center Nurse 1 [Ulcer Assessment] #2 R Drummond -Current Size (cm) - Length 0.5 -Current Size (cm) - Width 0.5 -Current Size (cm) - Depth 0.1 -Total Square Cm 0.25 -Photo Taken Yes -Exudate Amt Small -Exudate Type Yellow/Green -Wound Margin Distinct, Outline Attached -Granulation Amt None Present (0 %) -Necrosis Amt Large (67-100%) -Necrotic Tissue Type Adherent Slough -Structure Exposed N/A -Moisture (Joycelyn-wound Skin Appearance No Abnormality ) -Color (Joycelyn-wound Skin Appearance) Erythema -Temperature (Joycelyn-wound Skin No Abnormality Appearance) (Pt Warm) -Tenderness on Palpation (Joycelyn-wound No Skin Appearance) -Ulcer Cleansing Wound Cleanser -Foul Odor after Cleansing No -Anesthetic Used 5% Lidocaine Gel [Edema Assessment] -Right Calf (cm) 38 -Right Ankle (cm) 19.8 -Left Calf (cm) 38 -Left Ankle (cm) 20.5 WC - Nurse 2 - General Ulcer CM Notes Start: 05/05/19 10:06 Freq: Status: Active Protocol: Activity Type Activity Date Activity User E-Sign Co-Sign Detail Recorded Client Recorded Date Recorded By Document 05/05/19 10:39 MW [id number] 05/05/19 10:44 MW 05/05/19 10:39 Wound Center Nurse 2 [Procedure/Treatment] #2 R Drummond -Time 10:39 -Correct Patient Yes -Correct Side, Site, Position Yes -Correct Procedure Yes -Procedure Performed Yes -Type of Procedure Debridement -Clinical Debridement Subcutaneous -Post Debridement Size (cm) - Length 0.5 -Post Debridement Size (cm) - Width 0.5 -Post Debridement Size (cm) - Depth 0.2 -Total Square Cm 0.25 -Wound/Ulcer Outcome Not Healed -Ulcer Cleansing Rinsed/ Irrigated with Saline -Foul Odor after Cleansing No -Bioengineered Tissue No -Bleeding Controlled with Pressure -Offloading No -Treatment Response Procedure Tolerated Well [See Physician Procedure note for Specifics] Pain Scale: 0-10 Numeric [Pain] -Is Patient Pain Free? Yes Musculoskeletal: No Tenderness to Palpation of Joints or Extremities Lymphatic: No Cervical, Supraclavicular, or Inguinal Adenopathy Neurological: Cranial nerves II-XII grossly intact, Neuro grossly intact Psych/Mental Status: Normal Affect, Appropriate, Alert and oriented to time, place, person, mood and affect Debridement Note Post-Debridement Measurements/Treatment WC - Nurse 2 - General Ulcer CM Notes Start: 05/05/19 10:06 Freq: Status: Active Protocol: Activity Type Activity Date Activity User E-Sign Co-Sign Detail Recorded Client Recorded Date Recorded By Document 05/05/19 10:39 MW [id number] 05/05/19 10:44 MW 05/05/19 10:39 Wound Center Nurse 2 #2 R Drum[place] -Time 10:39 -Correct Patient Yes -Correct Side, Site, Position Yes -Correct Procedure Yes -Procedure Performed Yes -Type of Procedure Debridement -Clinical Debridement Subcutaneous -Post Debridement Size (cm) - Length 0.5 -Post Debridement Size (cm) - Width 0.5 -Post Debridement Size (cm) - Depth 0.2 -Total Square Cm 0.25 -Wound/Ulcer Outcome Not Healed -Ulcer Cleansing Rinsed/ Irrigated with Saline -Foul Odor after Cleansing No -Bioengineered Tissue No -Bleeding Controlled with Pressure -Offloading No -Treatment Response Procedure Tolerated Well Pain Scale: 0-10 Numeric Is Patient Pain Free? Yes Wound debrided: Right drummond wound Type of Debridement: Excisional debridement Anesthesia Used: 5% Lidocaine Gel Depth: Down to and including healthy tissue, in the subcutaneous layer Percentage of wound debrided: 100 Instrument Used: 7mm curette Tissue Removed: Fibrin Severity: Fat Layer Exposed Amount of bleeding with debridement: Mild Bleeding Controlled with: Compression and gauze Patient tolerated procedure well Assessment/Plan Cultures aerobic and anaerobic x-ray of right tib-fib for osteomyelitis Active Problems Peripheral neuropathy (Chronic) Deep vein thrombosis (DVT) of left lower extremity (Chronic) Nonhealing nonsurgical wound with fat layer exposed (Acute) Edema of lower extremity (Acute) Assessment: Wash right drummond with antibacterial soaps apply Promogran to base of wound Adaptic dressing compression stocking Tubigrip. Follow-up in 1 week. Will call with the culture results and x-ray results. Plan: Charge from the wound center follow-up as needed
[2019-05-12 09:11] VITALS: BP 138/74; PULSE 66; RESP 16; TEMP 35; BMI 33.2
--- NOTE | 2019-05-12 10:19 | PN.PCM_ITS ---
(1) Nonhealing nonsurgical wound with fat layer exposed Status: Acute Current Visit: Yes Code(s): T14.8XXA - Other injury of unspecified body region, initial encounter (2) Edema of lower extremity Status: Acute Current Visit: Yes Code(s): R60.0 - Localized edema (3) Deep vein thrombosis (DVT) of left lower extremity Status: Chronic Current Visit: Yes Code(s): I82.402 - Acute embolism and thrombosis of unspecified deep veins of left lower extremity (4) Peripheral neuropathy Status: Chronic Current Visit: Yes Qualifiers: Peripheral neuropathy type: polyneuropathy associated with underlying disease Qualified Code(s): G63 - Polyneuropathy in diseases classified elsewhere Code(s): G62.9 - Polyneuropathy, unspecified Type of Wound Date of Service: 05/12/19 Chief Complaint: Follow-up of her right lower drummond wound History of Wound: 68-year-old white female that was seen by her dope and fabric worker for a left great toe wound decided she had an abscess on her right lower drummond area. He I&D the area and February.But there was improper follow-up probably from patient. Patient went back to her family doctor put on antibiotics it did not help. There was some concern about it so the doctor sent her here Progress of Wound: The area looks like a puncture wound probably from the I&D erythematous base with serous drainage. This week the area is just shallow and no erythema around the edge and healing well patient denies pain pus drainage or signs of infection - Physical Exam Vital Signs Temp Pulse Resp BP 95.0 F L 66 16 138/74 H 05/12/19 09:11 05/12/19 09:11 05/12/19 09:11 05/12/19 09:11 General: Oriented x3, Cooperative, Well developed HEENT: Atraumatic, PERRLA Oral: Moist Mucosa Neck: Supple, No JVD Lungs: Clear to auscultation, Normal air movement Cardiovascular: Regular rate, Regular Rhythm Abdomen: Bowel Sounds Present, Soft, Non Tender, No Hepato-splenomegaly Extremities: No clubbing, Edema, - - Right drummond wound from previous I&D that never healed Wound Measurements and Assessment WC - Nurse 1 - General Ulcer Measurement Start: 05/05/19 10:06 Freq: Status: Active Protocol: Activity Type Activity Date Activity User E-Sign Co-Sign Detail Recorded Client Recorded Date Recorded By Document 05/12/19 09:11 BS [id number] 05/12/19 09:16 BS 05/12/19 09:11 Wound Center Nurse 1 [Ulcer Assessment] #2 R Drummond -Combined with other wound No -Current Size (cm) - Length 0.5 -Current Size (cm) - Width 0.5 -Current Size (cm) - Depth 0.1 -Total Square Cm 0.25 -Photo Taken No -Tunneling No -Moisture (Joycelyn-wound Skin Appearance Assessed,Dry/ ) Scaly -Color (Joycelyn-wound Skin Appearance) Assessed, Hemosiderin Staining -Temperature (Joycelyn-wound Skin No Abnormality Appearance) (Pt Warm) -Tenderness on Palpation (Joycelyn-wound No Skin Appearance) -Ulcer Cleansing Rinsed/ Irrigated with Saline -Foul Odor after Cleansing No -Anesthetic Used 5% Lidocaine Gel WC - Nurse 2 - General Ulcer CM Notes Start: 05/05/19 10:06 Freq: Status: Active Protocol: Activity Type Activity Date Activity User E-Sign Co-Sign Detail Recorded Client Recorded Date Recorded By Document 05/12/19 09:39 [id number] 05/12/19 09:40 05/12/19 09:39 Wound Center Nurse 2 [Procedure/Treatment] -Time 09:40 -Correct Patient Yes -Correct Side, Site, Position Yes -Correct Procedure Yes -Procedure Performed Yes -Type of Procedure Debridement -Clinical Debridement Subcutaneous -Post Debridement Size (cm) - Length 0.4 -Post Debridement Size (cm) - Width 0.4 -Post Debridement Size (cm) - Depth 0.2 -Total Square Cm 0.16 -Wound/Ulcer Outcome Not Healed -Ulcer Cleansing Rinsed/ Irrigated with Saline -Foul Odor after Cleansing No -Bioengineered Tissue No -Bleeding Controlled with Pressure -Offloading No -Treatment Response Procedure Tolerated Well [See Physician Procedure note for Specifics] Pain Scale: 0-10 Numeric [Pain] -Is Patient Pain Free? Yes Musculoskeletal: No Tenderness to Palpation of Joints or Extremities Lymphatic: No Cervical, Supraclavicular, or Inguinal Adenopathy Neurological: Cranial nerves II-XII grossly intact, Neuro grossly intact Psych/Mental Status: Normal Affect, Appropriate Debridement Note Post-Debridement Measurements/Treatment WC - Nurse 2 - General Ulcer CM Notes Start: 05/05/19 10:06 Freq: Status: Active Protocol: Activity Type Activity Date Activity User E-Sign Co-Sign Detail Recorded Client Recorded Date Recorded By Document 05/05/19 10:39 MW [id number] 05/05/19 10:44 MW Document 05/12/19 09:39 [id number] 05/12/19 09:40 05/05/19 05/12/19 10:39 09:39 Wound Center Nurse 2 #2 R Drummond -Time 10:39 09:40 -Correct Patient Yes Yes -Correct Side, Site, Position Yes Yes -Correct Procedure Yes Yes -Procedure Performed Yes Yes -Type of Procedure Debridement Debridement -Clinical Debridement Subcutaneous Subcutaneous -Post Debridement Size (cm) - Length 0.5 0.4 -Post Debridement Size (cm) - Width 0.5 0.4 -Post Debridement Size (cm) - Depth 0.2 0.2 -Total Square Cm 0.25 0.16 -Wound/Ulcer Outcome Not Healed Not Healed -Ulcer Cleansing Rinsed/ Rinsed/ Irrigated with Irrigated with Saline Saline -Foul Odor after Cleansing No No -Bioengineered Tissue No No -Bleeding Controlled with Pressure Pressure -Offloading No No -Treatment Response Procedure Procedure Tolerated Well Tolerated Well Pain Scale: 0-10 Numeric Is Patient Pain Free? Yes Yes Type of Debridement: Excisional debridement Anesthesia Used: 5% Lidocaine Gel Depth: Down to and including healthy tissue, in the subcutaneous layer Percentage of wound debrided: 100 Instrument Used: 3mm curette Tissue Removed: Fibrin Severity: Limited To Skin Breakdown Amount of bleeding with debridement: Mild Bleeding Controlled with: Compression and gauze Patient tolerated procedure well Assessment/Plan Clinical Impression(s) from Imaging Studies Tibia/Fibula X-Ray 05/05/19 11:26 IMPRESSION: Normal x-ray examination of the tibia and fibula. Electronically Signed: Camilo Ozuna MD at 18:14 EDT , Service support , Active Problems Peripheral neuropathy (Chronic) Deep vein thrombosis (DVT) of left lower extremity (Chronic) Nonhealing nonsurgical wound with fat layer exposed (Acute) Edema of lower extremity (Acute) Assessment: Wash right drummond with antibacterial soaps apply Promogran to base of wound Adaptic dressing compression stocking Tubigrip. Follow-up in 1 week. Will call with the culture results and x-ray results. Plan: Wash leg with antibacterial soap. Apply Promogran moistened with Adaptic over top. Use her compression stocking on the right leg keep clean and dry. Follow-up in 1 week
[2019-05-19 09:15] VITALS: BP 124/70; PULSE 66; RESP 16; TEMP 36.8; BMI 33.2
--- NOTE | 2019-05-19 10:40 | PCM.WC.PN ---
(1) Nonhealing nonsurgical wound with fat layer exposed Status: Acute Current Visit: Yes Code(s): T14.8XXA - Other injury of unspecified body region, initial encounter (2) Edema of lower extremity Status: Acute Current Visit: Yes Code(s): R60.0 - Localized edema (3) Deep vein thrombosis (DVT) of left lower extremity Status: Chronic Current Visit: Yes Code(s): I82.402 - Acute embolism and thrombosis of unspecified deep veins of left lower extremity (4) Peripheral neuropathy Status: Chronic Current Visit: Yes Qualifiers: Peripheral neuropathy type: polyneuropathy associated with underlying disease Qualified Code(s): G63 - Polyneuropathy in diseases classified elsewhere Code(s): G62.9 - Polyneuropathy, unspecified Type of Wound Date of Service: 05/19/19 Chief Complaint: Follow-up of her right lower drummond wound History of Wound: 68-year-old white female that was seen by her pipeman for a left great toe wound decided she had an abscess on her right lower drummond area. He I&D the area and February.But there was improper follow-up probably from patient. Patient went back to her family doctor put on antibiotics it did not help. There was some concern about it so the doctor sent her here Progress of Wound: The area looks like a puncture wound probably from the I&D erythematous base with serous drainage. This week the area is just shallow and erythema around the edge and healing well patient denies pain pus drainage or signs of infection. Still has some soreness. - Physical Exam Vital Signs Temp Pulse Resp BP 98.2 F 66 16 124/70 H 05/19/19 09:15 05/19/19 09:15 05/19/19 09:15 05/19/19 09:15 General: Oriented x3, Cooperative, Well developed HEENT: Atraumatic, PERRLA Oral: Moist Mucosa Neck: Supple, No JVD Lungs: Clear to auscultation, Normal air movement Cardiovascular: Regular rate, Regular Rhythm Abdomen: Bowel Sounds Present, Soft, Non Tender, No Hepato-splenomegaly Extremities: No clubbing, No edema, Edema Skin: - - Wound right drummond Wound Measurements and Assessment WC - Nurse 1 - General Ulcer Measurement Start: 05/05/19 10:06 Freq: Status: Active Protocol: Activity Type Activity Date Activity User E-Sign Co-Sign Detail Recorded Client Recorded Date Recorded By Document 05/19/19 09:15 BM [id number] 05/19/19 09:20 BM 05/19/19 09:15 Wound Center Nurse 1 [Ulcer Assessment] #2 R Drummond -Combined with other wound No -Current Size (cm) - Length 0.2 -Current Size (cm) - Width 0.4 -Current Size (cm) - Depth 0.1 -Total Square Cm 0.08 -Photo Taken No -Epithelialization Small 1-33% -Tunneling No -Undermining/Tunneling No -Circular Undermining No -Exudate Amt Small -Exudate Type Serous -Wound Margin Flat & Intact -Granulation Amt Medium (34-66%) -Granulation Quality Red -Slough/Fibrin Yes -Necrosis Amt Medium (34-66%) -Necrotic Tissue Type Adherent Slough -Texture (Joycelyn-wound Skin Appearance) Assessed, Scarring -Moisture (Joycelyn-wound Skin Appearance Assessed ) -Color (Joycelyn-wound Skin Appearance) Assessed, Erythema -Temperature (Joycelyn-wound Skin No Abnormality Appearance) (Pt Warm) -Tenderness on Palpation (Joycelyn-wound No Skin Appearance) -Ulcer Cleansing Rinsed/ Irrigated with Saline -Foul Odor after Cleansing No -Anesthetic Used 5% Lidocaine Gel [Edema Assessment] -Lower Limb Edema Present Yes -Right Calf (cm) 39 -Right Ankle (cm) 19.6 WC - Nurse 2 - General Ulcer CM Notes Start: 05/05/19 10:06 Freq: Status: Active Protocol: Activity Type Activity Date Activity User E-Sign Co-Sign Detail Recorded Client Recorded Date Recorded By Document 05/19/19 09:29 MW [id number] 05/19/19 09:30 MW 05/19/19 09:29 Wound Center Nurse 2 [Procedure/Treatment] #2 R Drummond -Time 09:29 -Correct Patient Yes -Correct Side, Site, Position Yes -Correct Procedure Yes -Procedure Performed Yes -Type of Procedure Debridement -Clinical Debridement Subcutaneous -Post Debridement Size (cm) - Length 0.3 -Post Debridement Size (cm) - Width 0.2 -Post Debridement Size (cm) - Depth 0.1 -Total Square Cm 0.06 -Wound/Ulcer Outcome Not Healed -Ulcer Cleansing Rinsed/ Irrigated with Saline -Foul Odor after Cleansing No -Bioengineered Tissue No -Bleeding Controlled with Pressure -Offloading No -Treatment Response Procedure Tolerated Well [See Physician Procedure note for Specifics] Pain Scale: 0-10 Numeric [Pain] -Is Patient Pain Free? Yes Musculoskeletal: No Tenderness to Palpation of Joints or Extremities Lymphatic: No Cervical, Supraclavicular, or Inguinal Adenopathy Neurological: Cranial nerves II-XII grossly intact, Neuro grossly intact Psych/Mental Status: Normal Affect, Appropriate Debridement Note Post-Debridement Measurements/Treatment WC - Nurse 2 - General Ulcer CM Notes Start: 05/05/19 10:06 Freq: Status: Active Protocol: Activity Type Activity Date Activity User E-Sign Co-Sign Detail Recorded Client Recorded Date Recorded By Document 05/05/19 10:39 MW [id number] 05/05/19 10:44 MW Document 05/12/19 09:39 JF [id number] 05/12/19 09:40 JF Document 05/19/19 09:29 MW [id number] 05/19/19 09:30 MW 05/05/19 05/12/19 05/19/19 10:39 09:39 09:29 Wound Center Nurse 2 #2 R Drummond -Time 10:39 09:40 09:29 -Correct Patient Yes Yes Yes -Correct Side, Site, Position Yes Yes Yes -Correct Procedure Yes Yes Yes -Procedure Performed Yes Yes Yes -Type of Procedure Debridement Debridement Debridement -Clinical Debridement Subcutaneous Subcutaneous Subcutaneous -Post Debridement Size (cm) - Length 0.5 0.4 0.3 -Post Debridement Size (cm) - Width 0.5 0.4 0.2 -Post Debridement Size (cm) - Depth 0.2 0.2 0.1 -Total Square Cm 0.25 0.16 0.06 -Wound/Ulcer Outcome Not Healed Not Healed Not Healed -Ulcer Cleansing Rinsed/ Rinsed/ Rinsed/ Irrigated with Irrigated with Irrigated with Saline Saline Saline -Foul Odor after Cleansing No No No -Bioengineered Tissue No No No -Bleeding Controlled with Pressure Pressure Pressure -Offloading No No No -Treatment Response Procedure Procedure Procedure Tolerated Well Tolerated Well Tolerated Well Pain Scale: 0-10 Numeric Is Patient Pain Free? Yes Yes Yes Wound debrided: Right drummond wound Type of Debridement: Excisional debridement Anesthesia Used: 5% Lidocaine Gel Depth: Down to and including healthy tissue, in the subcutaneous layer Percentage of wound debrided: 100 Instrument Used: 3mm curette Tissue Removed: Fibrin devitalized tissue Severity: Limited To Skin Breakdown Bleeding Controlled with: Pressure Patient tolerated procedure well Assessment/Plan Clinical Impression(s) from Imaging Studies Tibia/Fibula X-Ray 05/05/19 11:26 IMPRESSION: Normal x-ray examination of the tibia and fibula. Electronically Signed: Camilo Ozuna MD at 18:14 EDT , Service support , Active Problems Peripheral neuropathy (Chronic) Deep vein thrombosis (DVT) of left lower extremity (Chronic) Nonhealing nonsurgical wound with fat layer exposed (Acute) Edema of lower extremity (Acute) Assessment: Wash right drummond with antibacterial soaps apply Promogran to base of wound Adaptic dressing compression stocking Tubigrip. Follow-up in 1 week. Will call with the culture results and x-ray results. Plan: Wash leg with antibacterial soap. Apply Promogran moistened with Adaptic over top. Use her compression stocking on the right leg keep clean and dry. Follow-up in 1 week
[2019-05-26 09:16] VITALS: BP 136/81; PULSE 72; RESP 16; TEMP 37.2; BMI 33.2
--- NOTE | 2019-05-26 10:45 | PCM.WC.PN ---
(1) Nonhealing nonsurgical wound with fat layer exposed Status: Acute Current Visit: Yes Code(s): T14.8XXA - Other injury of unspecified body region, initial encounter (2) Edema of lower extremity Status: Acute Current Visit: Yes Code(s): R60.0 - Localized edema (3) Deep vein thrombosis (DVT) of left lower extremity Status: Chronic Current Visit: Yes Code(s): I82.402 - Acute embolism and thrombosis of unspecified deep veins of left lower extremity (4) Peripheral neuropathy Status: Chronic Current Visit: Yes Qualifiers: Peripheral neuropathy type: polyneuropathy associated with underlying disease Qualified Code(s): G63 - Polyneuropathy in diseases classified elsewhere Code(s): G62.9 - Polyneuropathy, unspecified Type of Wound Date of Service: 05/26/19 Chief Complaint: Follow-up of her right lower drummond wound History of Wound: 68-year-old white female that was seen by her intensive care specialist for a left great toe wound decided she had an abscess on her right lower drummond area. He I&D the area and February.But there was improper follow-up probably from patient. Patient went back to her family doctor put on antibiotics it did not help. There was some concern about it so the doctor sent her here Progress of Wound: The wound is healed and the patient will be discharged from the wound center today - Physical Exam Vital Signs Temp Pulse Resp BP 98.9 F 72 16 136/81 H 05/26/19 09:16 05/26/19 09:16 05/26/19 09:16 05/26/19 09:16 General: Oriented x3, Cooperative, Well developed HEENT: Atraumatic, PERRLA Oral: Moist Mucosa Neck: Supple, No JVD Lungs: Clear to auscultation, Normal air movement Cardiovascular: Regular rate, Regular Rhythm Abdomen: Bowel Sounds Present, Soft, Non Tender, No Hepato-splenomegaly Extremities: No clubbing, No edema Wound Measurements and Assessment WC - Nurse 1 - General Ulcer Measurement Start: 05/05/19 10:06 Freq: Status: Active Protocol: Activity Type Activity Date Activity User E-Sign Co-Sign Detail Recorded Client Recorded Date Recorded By Document 05/26/19 09:16 [facility] [id number] 05/26/19 09:24 [facility] 05/26/19 09:16 Wound Center Nurse 1 [Ulcer Assessment] #2 R Drummond -Combined with other wound No -Current Size (cm) - Length 0.1 -Current Size (cm) - Width 0.2 -Current Size (cm) - Depth 0.1 -Total Square Cm 0.02 -Photo Taken No -Epithelialization Small 1-33% -Tunneling No -Undermining/Tunneling No -Circular Undermining No -Exudate Amt Small -Exudate Type Serous -Wound Margin Flat & Intact -Granulation Amt Medium (34-66%) -Granulation Quality [place] -Slough/Fibrin No -Necrosis Amt None Present (0 %) -Texture (Joycelyn-wound Skin Appearance) Assessed, Scarring -Moisture (Joycelyn-wound Skin Appearance Assessed,Dry/ ) Scaly -Color (Joycelyn-wound Skin Appearance) Assessed, Erythema -Temperature (Jocyelyn-wound Skin No Abnormality Appearance) (Pt Warm) -Tenderness on Palpation (Joycelyn-wound No Skin Appearance) -Ulcer Cleansing Rinsed/ Irrigated with Saline -Foul Odor after Cleansing No -Anesthetic Used 5% Lidocaine Gel [Edema Assessment] -Lower Limb Edema Present Yes -Right Calf (cm) 38.5 -Right Ankle (cm) 19.5 WC - Nurse 2 - General Ulcer CM Notes Start: 05/05/19 10:06 Freq: Status: Active Protocol: Activity Type Activity Date Activity User E-Sign Co-Sign Detail Recorded Client Recorded Date Recorded By Document 05/26/19 09:40 MW [id number] 05/26/19 09:41 MW 05/26/19 09:40 Wound Center Nurse 2 [Procedure/Treatment] #2 R Drummond -Time 09:40 -Correct Patient Yes -Correct Side, Site, Position Yes -Correct Procedure Yes -Procedure Performed No -Post Debridement Size (cm) - Length 0 -Post Debridement Size (cm) - Width 0 -Post Debridement Size (cm) - Depth 0 -Total Square Cm 0 -Wound/Ulcer Outcome Healed- Epithelialized [See Physician Procedure note for Specifics] Pain Scale: 0-10 Numeric [Pain] -Is Patient Pain Free? Yes Musculoskeletal: No Tenderness to Palpation of Joints or Extremities Lymphatic: No Cervical, Supraclavicular, or Inguinal Adenopathy Neurological: Cranial nerves II-XII grossly intact, Neuro grossly intact Psych/Mental Status: Normal Affect, Appropriate Debridement Note Post-Debridement Measurements/Treatment WC - Nurse 2 - General Ulcer CM Notes Start: 05/05/19 10:06 Freq: Status: Active Protocol: Activity Type Activity Date Activity User E-Sign Co-Sign Detail Recorded Client Recorded Date Recorded By Document 05/05/19 10:39 MW [id number] 05/05/19 10:44 MW Document 05/12/19 09:39 JF [id number] 05/12/19 09:40 JF Document 05/19/19 09:29 MW [id number] 05/19/19 09:30 MW Document 05/26/19 09:40 MW [id number] 05/26/19 09:41 MW 05/05/19 05/12/19 05/19/19 10:39 09:39 09:29 Wound Center Nurse 2 #2 R Drummond -Time 10:39 09:40 09:29 -Correct Patient Yes Yes Yes -Correct Side, Site, Position Yes Yes Yes -Correct Procedure Yes Yes Yes -Procedure Performed Yes Yes Yes -Type of Procedure Debridement Debridement Debridement -Clinical Debridement Subcutaneous Subcutaneous Subcutaneous -Post Debridement Size (cm) - Length 0.5 0.4 0.3 -Post Debridement Size (cm) - Width 0.5 0.4 0.2 -Post Debridement Size (cm) - Depth 0.2 0.2 0.1 -Total Square Cm 0.25 0.16 0.06 -Wound/Ulcer Outcome Not Healed Not Healed Not Healed -Ulcer Cleansing Rinsed/ Rinsed/ Rinsed/ Irrigated with Irrigated with Irrigated with Saline Saline Saline -Foul Odor after Cleansing No No No -Bioengineered Tissue No No No -Bleeding Controlled with Pressure Pressure Pressure -Offloading No No No -Treatment Response Procedure Procedure Procedure Tolerated Well Tolerated Well Tolerated Well Pain Scale: 0-10 Numeric Is Patient Pain Free? Yes Yes Yes 05/26/19 09:40 Wound Center Nurse 2 #2 R Drummond -Time 09:40 -Correct Patient Yes -Correct Side, Site, Position Yes -Correct Procedure Yes -Procedure Performed No -Type of Procedure -Clinical Debridement -Post Debridement Size (cm) - Length 0 -Post Debridement Size (cm) - Width 0 -Post Debridement Size (cm) - Depth 0 -Total Square Cm 0 -Wound/Ulcer Outcome Healed- Epithelialized -Ulcer Cleansing -Foul Odor after Cleansing -Bioengineered Tissue -Bleeding Controlled with -Offloading -Treatment Response Pain Scale: 0-10 Numeric Is Patient Pain Free? Yes No debridement was completed today Assessment/Plan Clinical Impression(s) from Imaging Studies Tibia/Fibula X-Ray 05/05/19 11:26 IMPRESSION: Normal x-ray examination of the tibia and fibula. Electronically Signed: Camilo Ozuna MD at 18:14 EDT , Service support , Active Problems Peripheral neuropathy (Chronic) Deep vein thrombosis (DVT) of left lower extremity (Chronic) Nonhealing nonsurgical wound with fat layer exposed (Acute) Edema of lower extremity (Acute) Assessment: Nonhealing nonsurgical wound resolved Plan: Discharge from the wound center follow-up as needed
== END 2019-05-27 23:59 ==
LOC: WC 09:30
PROVIDERS: Family Provider Nurse Practitioner Family; PCP Nurse Practitioner Family; Referring Provider Nurse Practitioner; Visit Provider Nurse Practitioner
DX: S81.832A Puncture wound without foreign body, left lower leg, initial encounter (principal); X58.XXXA Exposure to other specified factors, initial encounter; R60.0 Localized edema; Z86.718 Personal history of other venous thrombosis and embolism; G62.9 Polyneuropathy, unspecified; T14.8XXA Other injury of unspecified body region, initial encounter
CPT/HCPCS: 11042; 73590; 87070; 87075; 87205; 99213; G0463